=== PATIENT | female | born 1980 | race Caucasian/White ===

== ENCOUNTER 2017-06-04 12:20 | Emergency (ER) | payer MEDICAID ==
[~2017-06-04] VITALS: Ht 162.6 cm; Wt 56.8 kg
[2017-06-04 12:21] VITALS: BP 109/64
[2017-06-04] MEDS ORDERED: DEXAMETHASONE 4 MG/ML, 5ML ONE (12:57)
[2017-06-04] MEDS ORDERED: DEXAMETHASONE 4 MG/ML, 1ML PO ONE (13:00)
[2017-06-04 13:11] LABS: HEMATOCRIT 24.7 % (34.6-47.8); HEMOGLOBIN 7.3 g/dL (11.7-16.4); WHITE BLOOD COUNT 11.8 x10^3/uL (3.4-10)
[2017-06-04 13:15] LABS: BLOOD UREA NITROGEN 8 mg/dL (7-18)
[2017-06-04 13:37] LABS: ANISOCYTOSIS 1+; HYPOCHROMIA 1+; MICROCYTOSIS 1+
[2017-06-04 13:38] LABS: OVALOCYTES 1+; POIKILOCYTOSIS 1+; POLYCHROMASIA 1+
[2017-06-04 13:39] LABS: TARGET CELLS 1+
== END 2017-06-04 13:17 | disposition home or self-care (01) ==
LOC: ED 13:11
DX: J20.9 Acute bronchitis, unspecified (principal); G89.29 Other chronic pain; D50.9 Iron deficiency anemia, unspecified; J45.909 Unspecified asthma, uncomplicated
CPT/HCPCS: 36415; 71020; 80048; 82040; 85025; 93005; 99285; J1100

== ENCOUNTER 2017-12-05 10:03 | Emergency (ER) | payer MEDICAID ==
[~2017-12-05] VITALS: Ht 162.6 cm; Wt 60.1 kg
[2017-12-05 10:08] VITALS: BP 109/66
== END 2017-12-05 11:04 | disposition home or self-care (01) ==
LOC: ED 10:58
DX: K02.9 Dental caries, unspecified (principal); J45.909 Unspecified asthma, uncomplicated
CPT/HCPCS: 99283

== ENCOUNTER 2018-04-21 04:07 | Emergency (ER) | payer MEDICAID ==
[~2018-04-21] VITALS: Ht 162.6 cm; Wt 58.7 kg
[2018-04-21 04:10] VITALS: BP 109/65
[2018-04-21] MEDS ORDERED: DIAZEPAM 5 MG TABLET ONE (04:51)
[2018-04-21] MEDS ORDERED: DIAZEPAM 5 MG TABLET PO ONE (05:00)
[2018-04-21 05:54] LABS: MICROSCOPIC NOT IND
[2018-04-21 05:58] LABS: CULTURE INDICATED? NO
== END 2018-04-21 06:37 | disposition home or self-care (01) ==
LOC: ED 04:30
DX: S39.012A Strain of muscle, fascia and tendon of lower back, initial encounter (principal); J45.909 Unspecified asthma, uncomplicated; X58.XXXA Exposure to other specified factors, initial encounter; Y93.89 Activity, other specified; Y92.89 Other specified places as the place of occurrence of the external cause; Y99.8 Other external cause status
CPT/HCPCS: 81003; 99283

== ENCOUNTER 2018-04-22 19:07 | Emergency (ER) | payer MEDICAID ==
[~2018-04-22] VITALS: Ht 170.2 cm; Wt 59.4 kg
[2018-04-22 19:54] LABS: HCG UR SG 1.032 (1.003-1.030); MICROSCOPIC AUTO
[2018-04-22 19:55] LABS: CULTURE INDICATED? YES
[2018-04-22] MEDS ORDERED: ONDANSETRON ODT 4 MG ONE (19:57)
[2018-04-22] MEDS ORDERED: FAMOTIDINE 20 MG TABLET ONE (19:57)
[2018-04-22] MEDS ORDERED: ONDANSETRON ODT 4 MG PO ONE (20:00)
[2018-04-22] MEDS ORDERED: FAMOTIDINE 20 MG TABLET PO ONE (20:00)
[2018-04-22 20:10] LABS: MD YES; MEAN CORPUSCULAR HEMOGLOBIN 18.1 pg (27.0-34.8); MEAN CORPUSCULAR VOLUME 60.8 fL (80-100); MEAN PLATELET VOLUME 7.6 fL (7.4-10.4); PLATELET COUNT 374 x10^3/uL (130-400); RED BLOOD COUNT 3.95 x10^6/uL (3.82-5.3); RED CELL DISTRIBUTION WIDTH 21.9 % (9.6-15.2)
[2018-04-22 20:13] LABS: ALBUMIN 3.2 g/dL (3.4-5.0); ANION GAP 8 mmol/L (5-15); CALCIUM 8.6 mg/dL (8.5-10.1); CHLORIDE 112 mmol/L (98-107)
[2018-04-22 20:17] LABS: ALANINE AMINOTRANSFERASE 14 U/L (12-78); ALKALINE PHOSPHATASE 56 U/L (45-117); BILIRUBIN,TOTAL 0.2 mg/dL (0.2-1.0); CREATININE 0.62 mg/dL (0.55-1.02); TOTAL PROTEIN 6.4 g/dL (6.4-8.2)
[2018-04-22 20:20] LABS: BAND#(MANUAL) 0.08 x10^3/uL; BANDS%(MANUAL) 1 % (0-7); EOS#(MANUAL) 0.33 x10^3/uL (0.0-0.4); EOS% (MANUAL) 4 % (1-7); LYMPH#(MANUAL) 1.16 x10^3/uL (1-3.4); LYMPHS% (MANUAL) 14 % (22-44); MONOS#(MANUAL) 0.17 x10^3/uL (0.3-2.7); MONOS% (MANUAL) 2 % (2-9); MYELOCYTES# (MANUAL) 0.08 x10^3/uL (0-0); MYELOCYTES% (MANUAL) 1 % (0-0); REACTIVE LYMPHS # (MANUAL) 0.33 x10^3/uL (0-0); REACTIVE LYMPHS % (MANUAL) 4 % (0-0); SEG#(MANUAL) 6.14 x10^3/uL (1.8-6.8); SEGS% (MANUAL) 74 % (42-75)
[2018-04-22 20:21] LABS: HYPOCHROMIA 3+
[2018-04-22 20:24] LABS: MICROCYTOSIS 2+
[2018-04-22 20:25] LABS: <PLATELET ESTIMATE> ADEQUATE; <PLT MORPHOLOGY> NORMAL PLT MORPH; ANISOCYTOSIS 2+; POLYCHROMASIA 1+
[2018-04-22 20:26] LABS: MEAN CORPUSCULAR HGB CONC 60.8 g/dL (32.4-35.8)
[2018-04-22] MEDS ORDERED: CEFTRIAXONE 1,000 MG in SODIUM CHLORIDE 0.9% 50 ML IV ONE (21:00)
[2018-04-22] MEDS ORDERED: SODIUM CHLORIDE 0.9% 1,000ML IVBOLUS ONE (21:00)
[2018-04-22] MEDS ORDERED: CEFTRIAXONE PMX 1GM/50ML 50 ML ONE (21:19)
[2018-04-22 21:40] VITALS: BP 106/49
[2018-04-22 21:57] VITALS: BP 102/56
[2018-04-22 22:50] VITALS: BP 119/65
== END 2018-04-22 23:01 | disposition home or self-care (01) ==
LOC: ED 21:36
DX: N30.00 Acute cystitis without hematuria (principal); D50.9 Iron deficiency anemia, unspecified; J45.909 Unspecified asthma, uncomplicated; F17.200 Nicotine dependence, unspecified, uncomplicated
CPT/HCPCS: 36415; 36430; 80053; 81001; 81025; 83690; 85025; 86850; 86900; 86923; 87086; 99285; J7030; P9016; Q0162; 99284

== ENCOUNTER 2018-04-26 12:15 | Emergency (ER) | payer MEDICAID ==
[~2018-04-26] VITALS: Ht 162.6 cm; Wt 57.7 kg
[2018-04-26 12:24] VITALS: BP 109/66
== END 2018-04-26 14:34 | disposition left against medical advice (07) ==
LOC: ED 12:45
DX: Z00.00 Encounter for general adult medical examination without abnormal findings (principal); F20.9 Schizophrenia, unspecified; J45.909 Unspecified asthma, uncomplicated
CPT/HCPCS: 36415; 72170; 84703; 99285

== ENCOUNTER 2018-07-19 02:40 | Emergency (ER) | payer MEDICAID ==
[~2018-07-19] VITALS: Ht 165.1 cm; Wt 65.7 kg
[2018-07-19 03:19] LABS: MICROSCOPIC NOT IND
[2018-07-19 03:22] LABS: MEAN CORPUSCULAR HEMOGLOBIN 21.3 pg (27.0-34.8); MEAN CORPUSCULAR HGB CONC 30.2 g/dL (32.4-35.8); MEAN CORPUSCULAR VOLUME 70.7 fL (80-100); MEAN PLATELET VOLUME 7.6 fL (7.4-10.4); PLATELET COUNT 368 x10^3/uL (130-400); RED BLOOD COUNT 4.45 x10^6/uL (3.82-5.3); RED CELL DISTRIBUTION WIDTH 32.1 % (9.6-15.2)
[2018-07-19] MEDS ORDERED: CEFTRIAXONE 250 MG ONE (03:23)
[2018-07-19] MEDS ORDERED: AZITHROMYCIN 500 MG TABLET ONE (03:23)
[2018-07-19 03:24] LABS: CULTURE INDICATED? NO
[2018-07-19 03:28] LABS: ALANINE AMINOTRANSFERASE 20 U/L (12-78); ALBUMIN 3.3 g/dL (3.4-5.0); ANION GAP 6 mmol/L (5-15); CALCIUM 8.4 mg/dL (8.5-10.1); CHLORIDE 111 mmol/L (98-107); CREATININE 0.66 mg/dL (0.55-1.02)
[2018-07-19] MEDS ORDERED: AZITHROMYCIN 500 MG TABLET PO ONE (03:30)
[2018-07-19] MEDS ORDERED: CEFTRIAXONE 250 MG IM ONE (03:30)
[2018-07-19 03:31] LABS: ALKALINE PHOSPHATASE 50 U/L (45-117); BILIRUBIN,TOTAL 0.2 mg/dL (0.2-1.0); TOTAL PROTEIN 6.3 g/dL (6.4-8.2)
[2018-07-19 03:37] LABS: BASOPHILS % (AUTO) 0 % (0-1); EOSINOPHILS # (AUTO) 0.16 x10^3/uL (0-0.4); EOSINOPHILS % (AUTO) 3 % (1-7); LYMPHOCYTES # (AUTO) 2.06 x10^3/uL (1-3.4); LYMPHOCYTES % (AUTO) 33 % (22-44); MD MORPH REVIEW ONLY; MONOCYTES # (AUTO) 0.61 x10^3/uL (0.2-0.8); MONOCYTES % (AUTO) 10 % (2-9); NEUTROPHILS # (AUTO) 3.46 x10^3/uL (1.8-6.8); NEUTROPHILS % (AUTO) 55 % (42-75)
[2018-07-19 03:42] LABS: ANISOCYTOSIS 2+
[2018-07-19 03:43] LABS: <PLATELET ESTIMATE> ADEQUATE; <PLT MORPHOLOGY> NORMAL PLT MORPH; HYPOCHROMIA 2+; MICROCYTOSIS 1+; OVALOCYTES 1+; POLYCHROMASIA 1+; TARGET CELLS 1+
[2018-07-19 03:56] LABS: CLUE CELLS NONE SEEN (NONE SEEN)
[2018-07-19 03:57] LABS: WET PREP WBCS FEW (FEW)
[2018-07-19 04:22] VITALS: BP 128/73
== END 2018-07-19 04:25 | disposition home or self-care (01) ==
LOC: ED 02:54
DX: N73.9 Female pelvic inflammatory disease, unspecified (principal); R10.2 Pelvic and perineal pain; N89.8 Other specified noninflammatory disorders of vagina; F17.200 Nicotine dependence, unspecified, uncomplicated; J45.909 Unspecified asthma, uncomplicated
CPT/HCPCS: 36415; 80053; 81003; 81025; 83690; 85025; 87210; 87491; 87591; 87808; 96372; 99283; J0696

== ENCOUNTER 2018-08-17 18:55 | Emergency (ER) | payer MEDICAID ==
[~2018-08-17] VITALS: Ht 162.6 cm; Wt 62.7 kg
[2018-08-17 18:59] VITALS: BP 118/76
[2018-08-17] MEDS ORDERED: HYDROcodone/APAP 5/325 TABLET ONE (19:35)
[2018-08-17] MEDS ORDERED: HYDROcodone/APAP 5/325 TABLET PO ONE (20:00)
== END 2018-08-17 20:14 | disposition home or self-care (01) ==
LOC: ED 19:09
DX: K08.89 Other specified disorders of teeth and supporting structures (principal); F17.210 Nicotine dependence, cigarettes, uncomplicated
CPT/HCPCS: 99283

== ENCOUNTER 2018-09-13 19:42 | Emergency (ER) | payer MEDICAID ==
[~2018-09-13] VITALS: Ht 162.6 cm; Wt 60.6 kg
--- NOTE | 2018-09-13 19:53 | NUR ---
NIL WHEN CALLED FOR TRIAGE
[2018-09-13 20:08] VITALS: BP 109/74
[2018-09-13 20:41] LABS: BASOPHILS # (AUTO) 0.01 x10^3/uL (0-0.1); BASOPHILS % (AUTO) 0 % (0-1); EOSINOPHILS # (AUTO) 0.11 x10^3/uL (0-0.4); EOSINOPHILS % (AUTO) 2 % (1-7); LYMPHOCYTES # (AUTO) 1.52 x10^3/uL (1-3.4); LYMPHOCYTES % (AUTO) 20 % (22-44); MD NO; MEAN CORPUSCULAR HEMOGLOBIN 23.7 pg (27.0-34.8); MEAN CORPUSCULAR VOLUME 76.2 fL (80-100); MONOCYTES # (AUTO) 0.63 x10^3/uL (0.2-0.8); MONOCYTES % (AUTO) 8 % (2-9); NEUTROPHILS # (AUTO) 5.47 x10^3/uL (1.8-6.8); NEUTROPHILS % (AUTO) 71 % (42-75); PLATELET COUNT 342 x10^3/uL (130-400); RED BLOOD COUNT 4.78 x10^6/uL (3.82-5.3); RED CELL DISTRIBUTION WIDTH 20.9 % (9.6-15.2)
[2018-09-13 20:45] LABS: ALBUMIN 3.6 g/dL (3.4-5.0); ANION GAP 4 mmol/L (5-15); CALCIUM 8.6 mg/dL (8.5-10.1); CHLORIDE 107 mmol/L (98-107); CREATININE 0.76 mg/dL (0.55-1.02)
[2018-09-13] MEDS ORDERED: ALBUTEROL/IPRATROPIUM 2.5MG/0.5MG, 3 ML NPPB ONE (21:00)
[2018-09-13] MEDS ORDERED: ALBUTEROL/IPRATROPIUM 2.5MG/0.5MG, 3 ML ONE (21:10)
== END 2018-09-13 21:38 | disposition home or self-care (01) ==
LOC: ED 21:32
DX: J06.9 Acute upper respiratory infection, unspecified (principal); F17.210 Nicotine dependence, cigarettes, uncomplicated
CPT/HCPCS: 36415; 71045; 80048; 82040; 85025; 93005; 94640; 99284

== ENCOUNTER 2018-11-08 23:26 | Emergency (ER) | payer MEDICAID ==
[~2018-11-08] VITALS: Ht 162.6 cm; Wt 56.7 kg
--- NOTE | 2018-11-08 23:35 | NUR ---
ASSUMED CARE OF PT AT THIS TIME FROM LOBBY. AMBULATORY TO ROOM WITH STEADY GAIT. 38 Y/O F REPORTS "VAGINAL DISCHARGE FOR ABOUT A WEEK, CLEAR AND YELLOW, WAS ON MY PERIOD TOO, STARTED AROUND October BUT NOT BLEEDING NOW, I'VE BEEN WITH THE SAME PERSON FOR A MONTH BUT NOT USING A RUBBER." DENIES ANY PAIN, ABD PAIN, VAGINAL BLEEDING, URINARY PAIN OR URINARY SYMPTOMS. CONT PULSE OX, BP MONITORS APPLIED. VSS. CALL LIGT IN REACH. FALL PRECAUTIONS IN PLACE. A&OX4. MILLA US AT BEDSIDE FOR EVALUATION.
--- NOTE | 2018-11-08 23:40 | NUR ---
MILLA US AT BEDSIDE FOR PELVIC EXAM
[2018-11-08] MEDS ORDERED: AZITHROMYCIN 500 MG TABLET PO STA (23:50)
[2018-11-08 23:55] LABS: CLUE CELLS NONE SEEN (NONE SEEN); WET PREP WBCS MANY (FEW)
--- NOTE | 2018-11-08 23:55 | NUR ---
PT AMBULATED TO RESTROOM WITH STEADY GAIT. CLEAN CATCH UA COLLECTED AND SENT TO LAB. RESTING IN POSITION OF COMFORT ON GURNERY. VSS. CALL LIGHT IN REACH. FALL PRECAUTIONS IN PLACE
[2018-11-09] MEDS ORDERED: CEFTRIAXONE 250 MG IM ONE
[2018-11-09 00:08] LABS: HCG UR SG 1.025 (1.003-1.030); MICROSCOPIC AUTO
[2018-11-09] MEDS ORDERED: AZITHROMYCIN 500 MG TABLET ONE (00:09)
[2018-11-09 00:10] LABS: CULTURE INDICATED? YES
[2018-11-09] MEDS ORDERED: CEFTRIAXONE 250 MG ONE (00:10)
--- NOTE | 2018-11-09 00:15 | NUR ---
PT MEDICATED NOTED PER MD ORDER. RESTING COMFORTABLY. VSS. CALL LIGHT IN REACH
[2018-11-09 00:47] VITALS: BP 115/62
== END 2018-11-09 00:50 | disposition home or self-care (01) ==
LOC: ED 23:59
DX: A56.02 Chlamydial vulvovaginitis (principal); A54.02 Gonococcal vulvovaginitis, unspecified; F17.200 Nicotine dependence, unspecified, uncomplicated
CPT/HCPCS: 81001; 81025; 87086; 87210; 87491; 87591; 87808; 96372; 99283; J0696

== ENCOUNTER 2019-03-02 17:09 | Inpatient (IN) | payer MEDICAID ==
[~2019-03-02] VITALS: Ht 162.6 cm; Wt 45.8 kg
[2019-03-06 14:23] VITALS: BP 110/69
== END 2019-03-06 16:00 | disposition left against medical advice (07) | DRG 720 ==
LOC: ED 18:11 → 3NE 22:06
PROVIDERS: ADMIT Family Medicine; ATTEND Family Medicine
PROC: 0WJJ3ZZ Inspection of Pelvic Cavity, Percutaneous Approach (ICD-10-PCS; principal; 2019-03-05)
DX: A41.9 Sepsis, unspecified organism (principal); E43 Unspecified severe protein-calorie malnutrition; D25.1 Intramural leiomyoma of uterus; N70.03 Acute salpingitis and oophoritis; D50.9 Iron deficiency anemia, unspecified; F15.10 Other stimulant abuse, uncomplicated; E87.6 Hypokalemia; D26.0 Other benign neoplasm of cervix uteri; K05.10 Chronic gingivitis, plaque induced; N73.9 Female pelvic inflammatory disease, unspecified; E16.2 Hypoglycemia, unspecified; D47.3 Essential (hemorrhagic) thrombocythemia; J45.909 Unspecified asthma, uncomplicated; N39.0 Urinary tract infection, site not specified; F17.210 Nicotine dependence, cigarettes, uncomplicated; Z68.1 Body mass index [BMI] 19.9 or less, adult; Z90.49 Acquired absence of other specified parts of digestive tract
CPT/HCPCS: 36415; 49405; 74176; 74177; 76830; 80053; 80307; 81001; 82728; 83540; 83550; 83605; 83690; 83735; 84100; 84703; 85025; 85610; 86592; 87040; 87086; 87210; 87491; 87591; 87806; 87808; 96365; 99156; 99157; C1894; G0378; J1756; J2250; J3010; J3480; J7060; C1769; G0475; J2310; J3475; J3490

== ENCOUNTER 2019-07-04 12:59 | Emergency (ER) | payer MEDICAID ==
[~2019-07-04] VITALS: Ht 162.6 cm; Wt 61.6 kg
[2019-07-04 13:33] VITALS: BP 108/40
--- NOTE | 2019-07-04 15:44 | NUR ---
PHOTOGRAPHY TEACHER: CALLED FOR ROOM, NO ANSWER
--- NOTE | 2019-07-04 16:01 | NUR ---
TELEVISION PARTS TESTER: CALLED FOR ROOM, NO ANSWER
--- NOTE | 2019-07-04 16:28 | NUR ---
TOBACCO DRYING MACHINE OPERATOR: CALLED FOR ROOM, NO ANSWER
== END 2019-07-04 16:30 | disposition left against medical advice (07) ==
LOC: ED 16:24
DX: R10.30 Lower abdominal pain, unspecified (principal); K08.89 Other specified disorders of teeth and supporting structures
CPT/HCPCS: 99281

== ENCOUNTER 2019-09-17 02:54 | Emergency (ER) | payer MEDICAID ==
[~2019-09-17] VITALS: Ht 162.6 cm; Wt 58.7 kg
[2019-09-17 02:57] VITALS: BP 108/60
--- NOTE | 2019-09-17 03:19 | NUR ---
RN to room just behind provider. Patient is alert, oriented, but doesn't answer questions clearly or concisely. Patient's reports feeling lower abdominal pain, which has been an issue for some time but recollection of history of pain is unclear. Patient reports having surgery in [facility]. Can't recall what procedure was performed or in what part of the hospital it was performed in. Midlevel provider attempted to review previous visits from EHR which included a past visit which patient left without being seen. Patient does report a recent history of methamphetamine use within the past couple of days. Patient informed of need to establish positive or negative using a urinalysis. Patient reports emptying bladder just prior to triage. RN returned with 1 L of water, encouraged patient to drink and change into hospital gown. Will reassess ability to urinate in 15-30 minutes.
--- NOTE | 2019-09-17 03:44 | NUR ---
RN to bedside x 3 to remind patient to drink water. Despite 4 times educating patient to drink water, with a whole liter of water provided, patient kept placing water at bedside after only a couple sips. Patient required RN to remain in room until patient finished liter for patient to finish fluids. Patient is not actively performing behaviors required to assess patient's well being.
[2019-09-17 04:16] LABS: HCG UR SG 1.011 (1.003-1.030); MICROSCOPIC AUTO
[2019-09-17 04:27] LABS: CULTURE INDICATED? YES
== END 2019-09-17 05:06 | disposition home or self-care (01) ==
LOC: ED 04:11
DX: R10.2 Pelvic and perineal pain (principal); F17.210 Nicotine dependence, cigarettes, uncomplicated; Z90.49 Acquired absence of other specified parts of digestive tract
CPT/HCPCS: 81001; 81025; 87086; 99283

== ENCOUNTER 2019-09-30 08:31 | Emergency (ER) | payer MEDICAID ==
[~2019-09-30] VITALS: Ht 162.6 cm; Wt 63.0 kg
--- NOTE | 2019-09-30 09:25 | NUR ---
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 IT'S STILL THERE." PT PLACED ON CONT PULSE OX,NIBP.
--- NOTE | 2019-09-30 09:35 | NUR ---
PT TO IMAGING
--- NOTE | 2019-09-30 10:19 | NUR ---
LATE ENTRY FOR 1000 PT BACK FROM IMAGING.
--- NOTE | 2019-09-30 10:32 | NUR ---
PT RESTING ON [place]. UA REQUESTED. PT STATES "I DID IT AT ULTRASOUND." THIS RN CALLED ULTRASOUND. NO URINE WAS RECEIVED. WILL REQUESTE ANOTHER SAMPLE.
[2019-09-30 10:48] LABS: MD YES; MEAN CORPUSCULAR HEMOGLOBIN 17.1 pg (27.0-34.8); MEAN CORPUSCULAR HGB CONC 28.6 g/dL (32.4-35.8); MEAN CORPUSCULAR VOLUME 59.6 fL (80-100); MEAN PLATELET VOLUME 7.1 fL (7.4-10.4); PLATELET COUNT 421 x10^3/uL (130-400); RED BLOOD COUNT 4.29 x10^6/uL (3.82-5.3); RED CELL DISTRIBUTION WIDTH 22.1 % (9.6-15.2)
--- NOTE | 2019-09-30 10:51 | NUR ---
UA WAS FOUND IN US. SENT TO LAB.
[2019-09-30 11:04] LABS: ANISOCYTOSIS 2+; BAND#(MANUAL) 0.08 x10^3/uL; BANDS%(MANUAL) 1 % (0-7); EOS#(MANUAL) 0.15 x10^3/uL (0.0-0.4); EOS% (MANUAL) 2 % (1-7); HYPOCHROMIA 2+; LYMPH#(MANUAL) 1.37 x10^3/uL (1-3.4); LYMPHS% (MANUAL) 18 % (22-44); MICROCYTOSIS 2+; MONOS#(MANUAL) 0.76 x10^3/uL (0.3-2.7); MONOS% (MANUAL) 10 % (2-9); POLYCHROMASIA 1+; SEG#(MANUAL) 5.24 x10^3/uL (1.8-6.8); SEGS% (MANUAL) 69 % (42-75)
[2019-09-30 11:06] LABS: <PLATELET ESTIMATE> INCREASED; <PLT MORPHOLOGY> NORMAL PLT MORPH
[2019-09-30 11:07] LABS: CULTURE INDICATED? YES; MICROSCOPIC INDICATED
[2019-09-30 11:07] LABS: TARGET CELLS 1+
[2019-09-30 11:10] LABS: OVALOCYTES 1+
[2019-09-30 12:00] VITALS: BP 109/61
[2019-09-30] MEDS ORDERED: CEFTRIAXONE 1,000 MG IM ONE (12:00)
[2019-09-30] MEDS ORDERED: CEFTRIAXONE 1,000 MG ONE (12:13)
--- NOTE | 2019-09-30 12:28 | NUR ---
ABX ADMINISTERED PER ORDER.
--- NOTE | 2019-09-30 12:52 | NUR ---
Patient/Caregiver given discharge instructions and they have confirmed that they understand the instructions. Patient ambulatory with steady gait. PT LEFT WITH ALL PERSONAL BELONGINGS.
== END 2019-09-30 12:53 | disposition home or self-care (01) ==
LOC: ED 10:24
DX: O23.11 Infections of bladder in pregnancy, first trimester (principal); Z3A.12 12 weeks gestation of pregnancy; F17.210 Nicotine dependence, cigarettes, uncomplicated
CPT/HCPCS: 36415; 76830; 81001; 84703; 85025; 87086; 96372; 99284; J0696

== ENCOUNTER 2019-10-13 04:44 | Emergency (ER) | payer MEDICAID ==
[~2019-10-13] VITALS: Ht 162.6 cm; Wt 63.5 kg
[2019-10-13 04:45] VITALS: BP 105/52
--- NOTE | 2019-10-13 05:08 | NUR ---
THIS IS A 39Y F THAT COMES IN THIS MORNING FOR A VAGINAL LAC, PER PT " SHE IS TRYING TO COME OUT BEFORE SHE IS SUPPOSED TO." PT REPORTS BEING 4MONTHS DESPITE HAVING A NEGATIVE TEST 09/30/2019. UPON EXAM, PT HAS NO LACERATION AND NO PAIN. PT STS SHE HAS BEEN SEEN HERE FOR AND INSISTS VERY STRONGLY THAT SHE IS . KARLA
--- NOTE | 2019-10-13 05:25 | NUR ---
Patient/Caregiver given discharge instructions and they have confirmed that they understand the instructions. Patient ambulatory with steady gait.
--- NOTE | 2019-10-13 05:26 | NUR ---
PT UNHAPPY WITH DISCHARGE PAPERS AND REQ WE WRITE THAT SHE SHOULD BE BEDRIDDEN. PT NOW THROWING SHOES AND CLOTHING AROUND ROOM. SECURITY CALLED TO ASSIST PT TO EXIT. PT AMB WITH STEADY GAIT
== END 2019-10-13 05:31 | disposition home or self-care (01) ==
LOC: ED 05:16
DX: F20.9 Schizophrenia, unspecified (principal); F15.10 Other stimulant abuse, uncomplicated
CPT/HCPCS: 99281

== ENCOUNTER 2019-10-19 19:51 | Emergency (ER) | payer MEDICAID ==
[~2019-10-19] VITALS: Ht 162.6 cm; Wt 68.1 kg
[2019-10-19] MEDS ORDERED: NYSTATIN/TRIAMCINOLONE CRM 15GM TP SCH (21:00)
--- NOTE | 2019-10-19 21:15 | NUR ---
Pt to shower.
[2019-10-19 22:15] VITALS: BP 110/48
== END 2019-10-19 22:17 | disposition home or self-care (01) ==
LOC: ED 20:20
DX: B35.6 Tinea cruris (principal); R05 Cough; R21 Rash and other nonspecific skin eruption; J45.909 Unspecified asthma, uncomplicated
CPT/HCPCS: 71045; 99283

== ENCOUNTER 2019-12-18 23:28 | Emergency (ER) | payer MEDICAID ==
[~2019-12-18] VITALS: Ht 162.6 cm; Wt 60.0 kg
[2019-12-18 23:32] VITALS: BP 127/55
== END 2019-12-19 00:11 | disposition home or self-care (01) ==
LOC: ED 23:52
DX: L01.01 Non-bullous impetigo (principal); F17.210 Nicotine dependence, cigarettes, uncomplicated; J45.909 Unspecified asthma, uncomplicated; Z90.49 Acquired absence of other specified parts of digestive tract; Z72.9 Problem related to lifestyle, unspecified
CPT/HCPCS: 99282; 99406

== ENCOUNTER 2020-01-05 21:16 | Emergency (ER) | payer MEDICAID ==
[~2020-01-05] VITALS: Ht 162.6 cm; Wt 58.2 kg
--- NOTE | 2020-01-05 21:32 | NUR ---
PT REPORTS "TUMMY HURTS" X2-3 DAYS. PLACED ON VITAL SIGNS MONITORS. CALL PLACED WITHIN REACH.
[2020-01-05] MEDS ORDERED: ONDANSETRON ODT 4 MG ONE (21:54)
[2020-01-05] MEDS ORDERED: IBUPROFEN 600 MG TABLET ONE (21:54)
[2020-01-05] MEDS ORDERED: ONDANSETRON ODT 4 MG PO ONE (22:00)
[2020-01-05] MEDS ORDERED: IBUPROFEN 600 MG TABLET PO ONE (22:00)
[2020-01-05 22:03] LABS: MICROSCOPIC AUTO
--- NOTE | 2020-01-05 22:26 | NUR ---
PT TO ULTRASOUND.
[2020-01-05 22:53] VITALS: BP 102/48
[2020-01-05 22:54] LABS: ALANINE AMINOTRANSFERASE 10 U/L (12-78); ALBUMIN 2.3 g/dL (3.4-5.0); ANION GAP 6 mmol/L (5-15); CALCIUM 7.9 mg/dL (8.5-10.1); CHLORIDE 108 mmol/L (98-107); CREATININE 0.68 mg/dL (0.55-1.02)
[2020-01-05 22:59] LABS: ALKALINE PHOSPHATASE 68 U/L (45-117); BILIRUBIN,TOTAL 0.2 mg/dL (0.2-1.0); TOTAL PROTEIN 6.9 g/dL (6.4-8.2)
[2020-01-05 23:02] LABS: MEAN CORPUSCULAR HEMOGLOBIN 17.7 pg (27.0-34.8); MEAN CORPUSCULAR VOLUME 60.7 fL (80-100); MEAN PLATELET VOLUME 7.2 fL (7.4-10.4); PLATELET COUNT 507 x10^3/uL (130-400); RED BLOOD COUNT 4.14 x10^6/uL (3.82-5.3); RED CELL DISTRIBUTION WIDTH 20.9 % (9.6-15.2)
[2020-01-05 23:03] LABS: MD YES
[2020-01-05 23:16] LABS: EOS#(MANUAL) 0.16 x10^3/uL (0.0-0.4); EOS% (MANUAL) 2 % (1-7); LYMPHS% (MANUAL) 21 % (22-44); MONOS#(MANUAL) 0.49 x10^3/uL (0.3-2.7); MONOS% (MANUAL) 6 % (2-9); SEG#(MANUAL) 5.75 x10^3/uL (1.8-6.8); SEGS% (MANUAL) 71 % (42-75)
[2020-01-05 23:18] LABS: ANISOCYTOSIS 2+; MICROCYTOSIS 2+; POLYCHROMASIA 1+; TARGET CELLS 1+
[2020-01-05 23:19] LABS: <PLATELET ESTIMATE> INCREASED; HYPOCHROMIA 2+
[2020-01-05 23:20] LABS: <PLT MORPHOLOGY> NORMAL PLT MORPH; MEAN CORPUSCULAR HGB CONC 29.3 g/dL (32.4-35.8)
[2020-01-05] MEDS ORDERED: CEFTRIAXONE 250 MG ONE (23:30)
[2020-01-05] MEDS ORDERED: CEFTRIAXONE 250 MG IM ONE (23:30)
[2020-01-05] MEDS ORDERED: AZITHROMYCIN 500 MG TABLET ONE (23:30)
[2020-01-05] MEDS ORDERED: AZITHROMYCIN 500 MG TABLET PO ONE (23:30)
== END 2020-01-05 23:44 | disposition home or self-care (01) ==
LOC: ED 21:38
DX: N30.00 Acute cystitis without hematuria (principal); D63.8 Anemia in other chronic diseases classified elsewhere; N83.292 Other ovarian cyst, left side; N83.291 Other ovarian cyst, right side; D25.0 Submucous leiomyoma of uterus; R93.5 Abnormal findings on diagnostic imaging of other abdominal regions, including retroperitoneum; Z72.9 Problem related to lifestyle, unspecified; J45.909 Unspecified asthma, uncomplicated; F17.210 Nicotine dependence, cigarettes, uncomplicated
CPT/HCPCS: 36415; 76856; 80053; 81001; 83690; 84703; 85025; 87086; 87147; 87491; 87591; 96372; 99284; 99406; J0696; Q0162

== ENCOUNTER 2020-02-01 02:38 | Emergency (ER) | payer MEDICAID ==
[~2020-02-01] VITALS: Ht 162.6 cm; Wt 58.8 kg
[2020-02-01 02:41] VITALS: BP 144/33
[2020-02-01 04:20] LABS: MEAN CORPUSCULAR HEMOGLOBIN 20.8 pg (27.0-34.8); MEAN CORPUSCULAR HGB CONC 29.9 g/dL (32.4-35.8); MEAN CORPUSCULAR VOLUME 69.4 fL (80-100); MEAN PLATELET VOLUME 7.3 fL (7.4-10.4); PLATELET COUNT 437 x10^3/uL (130-400); RED BLOOD COUNT 5.06 x10^6/uL (3.82-5.3); RED CELL DISTRIBUTION WIDTH 32.7 % (9.6-15.2)
--- NOTE | 2020-02-01 04:21 | NUR ---
Report received from KEARA Zurita. This RN to assume care. Awaiting lab results.
[2020-02-01 04:23] LABS: MD YES
[2020-02-01 04:23] LABS: ALBUMIN 2.8 g/dL (3.4-5.0); ANION GAP 3 mmol/L (5-15); CALCIUM 8.6 mg/dL (8.5-10.1); CHLORIDE 107 mmol/L (98-107)
[2020-02-01 04:29] LABS: ALANINE AMINOTRANSFERASE 17 U/L (12-78); ALKALINE PHOSPHATASE 68 U/L (45-117); BILIRUBIN,TOTAL 0.3 mg/dL (0.2-1.0); CREATININE 0.63 mg/dL (0.55-1.02); TOTAL PROTEIN 7.2 g/dL (6.4-8.2)
[2020-02-01 04:32] LABS: ANISOCYTOSIS 2+; BASOS#(MANUAL) 0.07 x10^3/uL (0-0.1); BASOS% (MANUAL) 1 % (0-1); EOS#(MANUAL) 0.21 x10^3/uL (0.0-0.4); EOS% (MANUAL) 3 % (1-7); HYPOCHROMIA 1+; LYMPH#(MANUAL) 3.22 x10^3/uL (1-3.4); LYMPHS% (MANUAL) 46 % (22-44); MICROCYTOSIS 2+; MONOS#(MANUAL) 0.21 x10^3/uL (0.3-2.7); MONOS% (MANUAL) 3 % (2-9); OVALOCYTES 1+; POLYCHROMASIA 1+; SEG#(MANUAL) 3.29 x10^3/uL (1.8-6.8); SEGS% (MANUAL) 47 % (42-75); TARGET CELLS 1+
[2020-02-01 04:33] LABS: <PLATELET ESTIMATE> INCREASED; <PLT MORPHOLOGY> NORMAL PLT MORPH
[2020-02-01 04:50] LABS: MICROSCOPIC INDICATED
[2020-02-01] MEDS ORDERED: CEFDINIR 300 MG CAPSULE PO ONE (05:00)
[2020-02-01] MEDS ORDERED: CEFDINIR 300 MG CAPSULE ONE (05:10)
== END 2020-02-01 05:56 | disposition home or self-care (01) ==
LOC: ED 05:10
DX: K64.4 Residual hemorrhoidal skin tags (principal); N30.00 Acute cystitis without hematuria
CPT/HCPCS: 36415; 80053; 81001; 84703; 85025; 87086; 99283

== ENCOUNTER 2020-02-06 01:25 | Emergency (ER) | payer MEDICAID ==
[~2020-02-06] VITALS: Ht 162.6 cm; Wt 58.0 kg
[2020-02-06 01:28] VITALS: BP 109/46
== END 2020-02-06 02:36 | disposition home or self-care (01) ==
LOC: ED 02:15
DX: M79.672 Pain in left foot (principal); M79.671 Pain in right foot; F15.10 Other stimulant abuse, uncomplicated; J45.909 Unspecified asthma, uncomplicated; F17.210 Nicotine dependence, cigarettes, uncomplicated; Z90.49 Acquired absence of other specified parts of digestive tract; Z72.9 Problem related to lifestyle, unspecified
CPT/HCPCS: 99283; 99406

== ENCOUNTER 2020-02-12 17:07 | Emergency (ER) | payer MEDICAID ==
[~2020-02-12] VITALS: Ht 162.6 cm; Wt 58.6 kg
[2020-02-12 17:22] VITALS: BP 121/77
--- NOTE | 2020-02-12 17:32 | NUR ---
Please see triage note. Pt resting on gurney connected to NIBP cuff, monitoring and evaluation advisor, and pulse ox. NADN. Pt poor historian and has tangential speech. Pt reports meth use today. NADN. No other needs expressed. Bedrail up x 1 and call light within reach.
[2020-02-12 17:50] LABS: BASOPHILS # (AUTO) 0.11 x10^3/uL (0-0.1); BASOPHILS % (AUTO) 2 % (0-1); EOSINOPHILS # (AUTO) 0.08 x10^3/uL (0-0.4); EOSINOPHILS % (AUTO) 1 % (1-7); LYMPHOCYTES # (AUTO) 1.77 x10^3/uL (1-3.4); LYMPHOCYTES % (AUTO) 25 % (22-44); MEAN CORPUSCULAR HEMOGLOBIN 22.1 pg (27.0-34.8); MEAN CORPUSCULAR VOLUME 71.3 fL (80-100); MEAN PLATELET VOLUME 7.2 fL (7.4-10.4); MONOCYTES # (AUTO) 0.65 x10^3/uL (0.2-0.8); MONOCYTES % (AUTO) 9 % (2-9); NEUTROPHILS % (AUTO) 64 % (42-75); PLATELET COUNT 441 x10^3/uL (130-400); RED BLOOD COUNT 3.99 x10^6/uL (3.82-5.3); RED CELL DISTRIBUTION WIDTH 30.9 % (9.6-15.2)
[2020-02-12 17:51] LABS: MD SCAN
[2020-02-12 17:58] LABS: ALBUMIN 2.9 g/dL (3.4-5.0); ANION GAP 5 mmol/L (5-15); CALCIUM 8.2 mg/dL (8.5-10.1); CHLORIDE 107 mmol/L (98-107); CREATININE 0.58 mg/dL (0.55-1.02)
--- NOTE | 2020-02-12 18:55 | NUR ---
RECEIVED REPORT FROM KEARA READ. PT LAYING IN BED, RESPIRATIONS EVEN AND UNLABORED, CALL LIGHT IN REACH. WILL CONTINUE TO MONITOR AND WATCH FOR ORDERS.
--- NOTE | 2020-02-12 19:28 | NUR ---
PT REFUSED PELVIC EXAM, EDUCATED ABOUT NECESSITY. PT BEGAN QUESTIONING MD'S INTELLIGENCE, STATING "YOU WENT TO SCHOOL FOR THIS?" PT STATED SHE WANTED TO LEAVE TO GO TO A DIFFERENT HOSPITAL. PT EDUCATED SHE WOULD BE LEAVING AMA, EDUCATED ABOUT POTENTIAL COMPLIACTIONS OF THIS. PT SIGNED AMA, DRESSED SELF AND LEFT D/C INSTRUCTIONS IN ROOM.
== END 2020-02-12 19:32 | disposition home or self-care (01) ==
LOC: ED 19:00
DX: N92.4 Excessive bleeding in the premenopausal period (principal); R05 Cough; J45.909 Unspecified asthma, uncomplicated; Z88.0 Allergy status to penicillin; Z90.49 Acquired absence of other specified parts of digestive tract
CPT/HCPCS: 36415; 80048; 82040; 85025; 99283